=== PATIENT | female | born 1960 | race Caucasian/White ===

== ENCOUNTER 2018-05-07 18:52 | Emergency (ER) | payer OTHER ==
[~2018-05-07] VITALS: Ht 152.4 cm; Wt 63.5 kg
[2018-05-07 19:23] VITALS: BP_SYST 144
[2018-05-07] MEDS ORDERED: PROCHLORPERAZINE EDISYLATE 10 MG/2 ML VIAL IM ONE (22:45)
[2018-05-07] MEDS ORDERED: DIPHENHYDRAMINE INJ 50 MG/ML VIAL IM ONE (22:45)
[2018-05-07] MEDS ORDERED: ONDANSETRON 4 MG ODT TAB PO ONE (23:45)
[2018-05-07 23:50] VITALS: BP_SYST 138
== END 2018-05-07 23:50 | disposition home or self-care (01) ==
LOC: SED 18:52
DX: G43.909 Migraine, unspecified, not intractable, without status migrainosus (principal); Z88.5 Allergy status to narcotic agent
CPT/HCPCS: 96372; 99283; J0780; J1200; Q0162